=== PATIENT | female | born 1995 | race Caucasian/White ===

== ENCOUNTER 2017-04-26 05:30 | Inpatient (IN) | payer OTHER ==
[~2017-04-26] VITALS: Ht 170.2 cm; Wt 86.3 kg
[~2017-04-26 05:30] MED LIST: FERR240T9 PO; IBUP800T25 PO; PREN-29 PO
[2017-04-26 05:56] VITALS: Ht 170.2 cm; Wt 86.3 kg
--- NOTE | 2017-04-26 05:59 | TRIAGE ---
OB Triage Datetime Report Generated by CPN: 04/26/2017 05:59 Datetime: 04/26/2017 05:58 Assessment Type: Triage Maternal Assessment Level of Consciousness: Fully Conscious Headache: Denies Blurred Vision: No Respiratory Effort: Unlabored; Regular Rhythm; Equal Expansion Nausea/Vomiting: Denies RUQ Epigastric Pain: Denies Facial Edema: None Fall Risk Assessment History of Falling: (0) No Secondary Diagnosis: (0) No Ambulatory Aid: (0) Bedrest/Nurse Assist IV Therapy: (0) No Gait: (0) Normal/Bedrest/Immobile Mental Status: (0) Oriented to Own Ability Fall Score: 0 Fall Risk Score Definition: No Risk: No action required Datetime: 04/26/2017 05:44 Time of Arrival: 04/26/2017 05:29 EGA: 38.2 Arrived By: Wheelchair Arrived From: Home Chief Complaint: UC'S SINCE 02:00 Movement: Present Contractions: Regular Time Contractions Began: 04/26/2017 02:00 Contractions: Q4-5 MIN Rupture of Membranes: Denies Vaginal Discharge: Denies Recent Sexual Intercouse: Denies Abdominal Trauma: Not Applicable Patient Complaints: Contractions Time Provider Notified: 04/26/2017 05:46 Provider Notified: ABUSLEME Initial Plan: EFM,SVE, CALL OB Datetime: 04/26/2017 05:43 Vaginal Exam Dilatation (cms): 4.0 Effacement (%): 80 Station: -2 Exam By: CORNELIO MILLER Vaginal Bleeding: None Cervix, Consistency: Moderate Cervix, Position: Midposition Presentation 'A': Cephalic
[2017-04-26] MEDS ORDERED: METHYLERGONOVINE 0.2 MG INJ IM PRN ×2 (06:00→13:00)
[2017-04-26] MEDS ORDERED: BUTORPHANOL 2 MG INJ IV PRN (06:00)
[2017-04-26] MEDS ORDERED: OXYTOCIN 30 UNITS/LR 500 ML IV SCH ×2 (06:00)
[2017-04-26] MEDS ORDERED: OXYTOCIN 30 UNITS/LR 500 ML IV PRN ×2 (06:00→13:00)
[2017-04-26] MEDS ORDERED: AMPICILLIN 2 GM/NS (PMX) 100 ML IV ONE (06:00)
[2017-04-26] MEDS ORDERED: IBUPROFEN 600 MG TAB PO PRN (06:00)
[2017-04-26] MEDS ORDERED: CARBOPROST 250 MCG INJ IM PRN ×2 (06:00→13:00)
[2017-04-26] MEDS ORDERED: LIDOCAINE 1% (MPF) 30 ML INJ INJ PRN (06:00)
[2017-04-26] MEDS ORDERED: MISOPROSTOL 200 MCG TAB PR PRN ×2 (06:00→13:00)
[2017-04-26] MEDS: LACTATED RINGER'S 1,000 ML IV SCH ×2 (06:18→09:22)
[2017-04-26 06:43] LABS: BASOPHIL # 0.1 10^3/ul (0.0-0.1); BASOPHILS % 0.4 % (0.0-2.0); EOSINOPHILS # 0.1 10^3/ul (0.0-0.5); EOSINOPHILS % 0.6 % (0.0-7.0); HEMATOCRIT 32.2 % (37.0-47.0); HEMOGLOBIN 10.7 g/dl (12.0-16.0); LYMPHOCYTES % 15.8 % (15.0-51.0); MEAN CORPUSCULAR HGB CONC 33.2 g/dl (32.0-37.0); MEAN CORPUSCULAR VOLUME 84.3 fl (82.0-101.0); MEAN PLATELET VOLUME 11.1 fl (7.4-10.4); MONOCYTES % 7.9 % (0.0-11.0); NEUTROPHIL # 9.4 10^3/ul (1.6-7.5); NEUTROPHILS % 74.1 % (39.0-77.0); PLATELET COUNT 183 10^3/UL (140-415); RED BLOOD COUNT 3.82 10^6/ul (4.20-5.40); RED CELL DISTRIBUTION WIDTH 14.5 % (11.5-14.5); WHITE BLOOD COUNT 12.7 10^3/ul (4.8-10.8)
[2017-04-26] MEDS: LACTATED RINGER'S 1,000 ML IV PRN ×2 (06:47→07:39)
[2017-04-26 07:08] LABS: INR 1.01; PROTIME 13.3 Sec (12.2-14.2)
[2017-04-26 07:09] LABS: PARTIAL THROMBOPLASTIN TIME 26.2 Sec (25.0-35.0)
[2017-04-26] MEDS ORDERED: FENTAnyl 2MCG/ML-ROPIV 0.2% 100 ML ONE (07:53)
[2017-04-26] MEDS ORDERED: EPHEDrine SULFATE 50 MG/5 ML SYG IV PRN (09:30)
[2017-04-26] MEDS ORDERED: DIPHENHYDRAMINE 50 MG INJ IV PRN (09:30)
[2017-04-26] MEDS ORDERED: FENTAnyl 2MCG/ML-ROPIV 0.2% 100 ML BAG EPI SCH (09:30)
[2017-04-26] MEDS ORDERED: NALOXONE (0.4 MG/ML) INJ IV PRN (09:30)
[2017-04-26] MEDS ORDERED: ONDANSETRON 4 MG INJ IV PRN ×2 (09:30→13:00)
[2017-04-26] MEDS ORDERED: AMPICILLIN 1 GM/NS (PMX) 50 ML IV SCH (10:00)
[2017-04-26 10:30] VITALS: BP 127/67; PULSE 80; RESP 20
--- NOTE | 2017-04-26 12:35 | HP ---
Date/Time of Note Date/Time of Note DATE: 04/26/17 TIME: 12:29 OB - History Hx of Present Free Text/Dictation 22 years old female 2 para 1 with an EDC of 05/08/2017. She was admitted last night due to labor pain and contractions and she was 4 cm dilated then, she progressed very well and her epidural anesthesia and she was admitted for vaginal delivery Last Menstrual Period: Aug 01, 2014 (08/01/2016) Estimated Due Date: May 08, 2017 : 2 Para: 1 Care: Good Care Obstetrical Complications: None Medical Complications: None Past Family/Social History * Past Medical, Surgical, Family and Obstetric Histories reviewed from chart. Blood Type: A+ Rubella: immune RPR/VDRL: Negative GBS Status: Negative HBsAG: Negative OB Admission Exam Vital Signs Vital Signs Vital Signs Date Time Temp Pulse Resp B/P Pulse Ox O2 Delivery O2 Flow Rate FiO2 04/26/17 10:30 98.1 80 20 127/67 Room Air Physical Exam HEENT: WNL Heart: Rhythm Normal Lungs: Clear, Equal Abdomen: WNL Extremities: Normal Reflexes: Normal Cervical Dilatation: 4cm Effacement: 50% Station: -2 Membranes: Intact Accelerations: Accelerations Present Varibility: Moderate Contractions on Admission: < 5 Minutes Apart Intensity: Moderate Last 72 hours Lab Results CBC & BMP 04/26/17 06:10 BELA FORREST MD Apr 26, 2017 12:35
--- NOTE | 2017-04-26 12:43 | LDN ---
Date/Time of Note Date/Time of Note DATE: 04/26/17 TIME: 12:41 Delivery Summary Weeks of Gestation Term Spontaneous vaginal delivery under epidural anesthesia with no lacerations. baby girl 9 9 no complications Placenta Delivered: Spontaneously Episiotomy: No Sponge & Needle done & correct: Yes All needle counts correct: Yes Any foreign bodies felt in the: No Problems: Infant Delivery Information Sex Infant Sex: female Apgars 1 Minute: 9 Suctioning Nose & mouth suctioned at mario: Yes Umbilical Cord Umbilical cord with: 3 Vessels Cord presentations: no nuchal cord Cord Blood was obtained: Yes Mother & Baby Disposition Disposition Mom & Baby to Maternity; Good: Yes BELA FORREST MD Apr 26, 2017 12:43
[2017-04-26] MEDS ORDERED: DIBUCAINE 1% 30 GM OINT PR PRN (13:00)
[2017-04-26] MEDS ORDERED: HYDROCODONE/APAP (5/325) TAB PO PRN ×2 (13:00)
[2017-04-26] MEDS ORDERED: DIPHENHYDRAMINE 25 MG CAP PO PRN (13:00)
[2017-04-26] MEDS ORDERED: ACETAMINOPHEN 325 MG TAB PO PRN ×2 (13:00)
[2017-04-26 14:10] VITALS: BP 117/56; PULSE 68; RESP 18
[2017-04-26] MEDS: LANOLIN 7 GM TUBE TOP PRN ×2 (14:12→16:00)
[2017-04-26] MEDS: OXYTOCIN 30 UNITS/LR 500 ML IV SCH ×2 (14:12→16:35)
[2017-04-26 16:00] VITALS: BP 99/53; PULSE 84; RESP 16
[2017-04-26] MEDS: IBUPROFEN 800 MG TAB PO SCH ×2 (17:41→23:48)
[2017-04-26 20:30] VITALS: BP 106/57; PULSE 69; RESP 18
[2017-04-26] MEDS: SENNA/DOCUSATE NA (8.6MG/50MG) TAB PO SCH (21:49)
[2017-04-27 04:00] VITALS: BP 109/58; PULSE 64; RESP 18
[2017-04-27] MEDS: IBUPROFEN 800 MG TAB PO SCH ×4 (05:42→23:52)
[2017-04-27 08:00] VITALS: BP 103/53; PULSE 71; RESP 19
[2017-04-27 09:24] LABS: BASOPHIL # 0.1 10^3/ul (0.0-0.1); BASOPHILS % 0.3 % (0.0-2.0); EOSINOPHILS # 0.2 10^3/ul (0.0-0.5); EOSINOPHILS % 1.1 % (0.0-7.0); HEMATOCRIT 34.8 % (37.0-47.0); HEMOGLOBIN 11.2 g/dl (12.0-16.0); LYMPHOCYTES # 2.5 10^3/ul (0.8-2.9); LYMPHOCYTES % 15.8 % (15.0-51.0); MEAN CORPUSCULAR HEMOGLOBIN 27.7 pg (29.0-33.0); MEAN CORPUSCULAR HGB CONC 32.2 g/dl (32.0-37.0); MEAN CORPUSCULAR VOLUME 86.1 fl (82.0-101.0); MEAN PLATELET VOLUME 11.6 fl (7.4-10.4); MONOCYTE # 1.2 10^3/ul (0.3-0.9); MONOCYTES % 7.7 % (0.0-11.0); NEUTROPHIL # 11.8 10^3/ul (1.6-7.5); NEUTROPHILS % 74.2 % (39.0-77.0); PLATELET COUNT 187 10^3/UL (140-415); RED BLOOD COUNT 4.04 10^6/ul (4.20-5.40); RED CELL DISTRIBUTION WIDTH 14.7 % (11.5-14.5); WHITE BLOOD COUNT 15.9 10^3/ul (4.8-10.8)
[2017-04-27] MEDS: SENNA/DOCUSATE NA (8.6MG/50MG) TAB PO SCH ×2 (09:25→21:18)
--- NOTE | 2017-04-27 09:49 | PD.PPDC ---
EPIC PROFESSIONAL Discharge Instruction Condition Patient Condition: Good Diet Diet: Resume Regular Diet Activity/Restrictions Activity: Normal Activity May Shower Restrictions: No Exercising No Lifting No Driving No Sexual Activity Nothing in the Vagina No [place] No Tampons, douche Follow-up Follow-up with Physician: 6, Week/Weeks Return to clinic for [employer] Instructions: Fever greater than 101 Chills Worsening abdominal pain Excessive Vaginal Bleeding More than 2 pads per hour Unable to tolerate diet OB Instructions: Breast Tenderness Depression Blurried Vision Headache BELA FORREST MD Apr 27, 2017 09:49
--- NOTE | 2017-04-27 09:52 | PN ---
Date/Time of Note Date/Time of Note DATE: 04/27/17 TIME: 09:51 OB Subjective Subjective Subjective STABLE, FEELS GOOD. NOT BLEEDING MUCH. UTERUS CONTRACTED LOCHIA NORMAL OB Objective HEENT: WNL Heart: Rhythm Normal Lungs: Clear, Equal Abdomen: WNL Extremities: Normal Reflexes: Normal BELA FORREST MD Apr 27, 2017 09:52
[2017-04-27 16:00] VITALS: BP 100/58; PULSE 65; RESP 19
[2017-04-27 20:15] VITALS: BP 111/75; PULSE 58; RESP 18
[2017-04-28 04:00] VITALS: BP 109/71; PULSE 55; RESP 18
[2017-04-28] MEDS: IBUPROFEN 800 MG TAB PO SCH ×2 (05:32→12:56)
[2017-04-28 08:30] VITALS: BP 122/86; PULSE 57; RESP 16
[2017-04-28] MEDS ORDERED: VARICELLA VACCINE LIVE/PF 1,350 UNIT/0.5 ML ML SC* ONE (09:00)
[2017-04-28] MEDS ORDERED: DIPHTH/TET/ACEL PERTUSS (ADULT) 0.5 ML VIAL IM* ONE (09:00)
[2017-04-28] MEDS ORDERED: MEASLES,MUMPS,RUBELLA VACCINE INJ SC* ONE (09:00)
[2017-04-28] MEDS: SENNA/DOCUSATE NA (8.6MG/50MG) TAB PO SCH (09:36)
--- NOTE | 2017-04-28 15:15 | DS ---
Date/Time of Note Date/Time of Note DATE: 04/28/17 TIME: 15:14 Obstetrical Discharge Record Final Diagnosis Final Diagnosis: Term delivered Vaginal Delivery Obstetrical Delivery: Spontaneous Complications Augmentation: No Rupture of Membranes: No Condition on Discharge Physical Assessment Voiding: Yes Bowel Movement: Yes Breast: Soft, non-tender Fundus: Firm Calf Tenderness: No Patient Condition: Good BELA FORREST MD Apr 28, 2017 15:15
== END 2017-04-28 16:05 | disposition home or self-care (01) | DRG 775 ==
LOC: OBT 05:30 → L-D 05:30 → OBT 05:50 → L-D 05:50 → PP1 14:17
PROVIDERS: ADMIT Obstetrics & Gynecology; ATTEND Obstetrics & Gynecology
PROC: 10E0XZZ Delivery of Products of Conception, External Approach (ICD-10-PCS; principal; 2017-04-26)
PROC: 3E0234Z Introduction of Serum, Toxoid and Vaccine into Muscle, Percutaneous Approach (ICD-10-PCS; 2017-04-28)
DX: O80 Encounter for full-term uncomplicated delivery (principal); Z23 Encounter for immunization; Z3A.38 38 weeks gestation of pregnancy; Z37.0 Single live birth
CPT/HCPCS: 62319; 85025; 85610; 85730; 86592; 86900; 86901; 87340; 90715; 90716; G0463; J2590; J3010; J7120